=== PATIENT | female | born 1945 | race Caucasian/White ===

== ENCOUNTER 2018-10-31 18:23 | Emergency (ER) | payer MEDICARE, OTHER, SELFPAY ==
[2018-10-31 18:27] VITALS: BP 132/59; PULSE 100; RESP 16; TEMP 36.4; O2SAT 95
--- NOTE | 2018-10-31 18:31 | DI.RAD.S_ITS ---
PROCEDURE: XR KNEE RT 3V INDICATIONS: unexplained weaknes, pain TECHNIQUE: 3 views of the knee were acquired. COMPARISON: None. FINDINGS: Bones: No fractures or dislocations. No suspicious bony lesions. Soft tissues: No joint effusion. No suspicious soft tissue calcifications. IMPRESSION: No acute fracture. No osseous lesion. If clinical suspicion and/or symptoms persist, further assessment with repeat plainfilms, or advanced imaging (e.g., CT, MRI, or bone scan) may be helpful for further assessment. Dictated by: Donato Justice M.D. on 10/31/2018 at 18:53 Approved by: Donato Justice M.D. on 10/31/2018 at 18:53
--- NOTE | 2018-10-31 21:05 | ED.EXTPRO ---
HPI - Extremity Problem <Jessa Flores PA-C - Last Filed: 10/31/18 22:24> General Chief complaint: Extremity Problem,Nontraumatic Stated complaint: Rt knee locked Time Seen by Provider: 10/31/18 20:18 Source: patient Mode of arrival: ambulatory Limitations: no limitations History of Present Illness HPI Narrative: This 72-year-old female states she came to ED at the insistence of her . Earlier this evening, they were getting ready to go out to dinner and she felt her right knee give out, like it was unstable momentarily. She does not remember if she took a funny step or pivoted, but she did not have any pain. She states that her caught her and she did not fall. She states that the knee feels normal now but her wanted her to get it checked out. She denies any other injury and has not had any recent pain. She denies any pain in the ankle or hip. Review of Systems <Jessa Flores PA-C - Last Filed: 10/31/18 22:24> Review of Systems ROS Unobtainable: All systems reviewed & are unremarkable except as noted in HPI and below PFSH <Jessa Flores PA-C - Last Filed: 10/31/18 22:24> Medical History No pertinent family history (Chronic) No significant past medical history (Chronic) Surgical History Status post hysterectomy (Resolved) Social History Smoking Status: Former smoker Social History Smoking Status: Former smoker Exam <Jessa Flores PA-C - Last Filed: 10/31/18 22:24> Narrative Exam Narrative: GENERAL APPEARANCE: Patient sitting comfortably, in no distress. LUNGS: Clear to auscultation bilaterally. HEART: Rate and rhythm regular without murmur, normal S1 and S2, no S3 or S4. MUSCULOSKELETAL: Right knee there is no effusion or tenderness to palpation across the knee, or distal thigh/proximal lower leg. No tenderness or effusion over the ankle. She has full active range of motion of each. No right knee laxity with varus or valgus stress or drawer test. She ambulates with a shortened gait, slightly wide-based EXTREMITIES: No edema, no calf tenderness Initial Vital Signs Initial Vital Signs: Vital Signs Temperature 97.5 F L 10/31/18 18:27 Pulse Rate 100 H 10/31/18 18:27 Respiratory Rate 16 10/31/18 18:27 Blood Pressure 132/59 L 10/31/18 18:27 Pulse Oximetry 95 10/31/18 18:27 <DO Zafar Pang Last Filed: 11/01/18 04:10> Initial Vital Signs Initial Vital Signs: Vital Signs Temperature 97.5 F L 10/31/18 18:27 Pulse Rate 100 H 10/31/18 18:27 Respiratory Rate 16 10/31/18 18:27 Blood Pressure 132/59 L 10/31/18 18:27 Pulse Oximetry 95 10/31/18 18:27 Course <Jessa Flores PA-C - Last Filed: 10/31/18 22:24> Additional Information: The patient states that this shortened gait is not normal for her and admits that she may feel a little bit of instability in the knee. We discussed possible tendon or ligamentous injury though she is not having pain. She agrees to try a knee immobilizer splint, and I advised wearing this for a week, and follow up with a new PCP (she can be seen at the [place] [facility] but has not been) for further testing if her gait is not back to normal. Orders Ordered: ED Orders 10/31/18 18:31 XR knee RT 3V Stat Vital Signs - 8 hr 10/31/18 21:07 Pulse Rate 74 Respiratory Rate 18 Blood Pressure [Right Arm] 154/69 H Pulse Oximetry 99 <DO Zafar Pang Last Filed: 11/01/18 04:10> Orders Ordered: ED Orders 10/31/18 18:31 XR knee RT 3V Stat Vital Signs - 8 hr 10/31/18 21:07 Pulse Rate 74 Respiratory Rate 18 Blood Pressure [Right Arm] 154/69 H Pulse Oximetry 99 MDM - Extremity (Nontraumatic) <Jessa Flores PA-C - Last Filed: 10/31/18 22:24> Imaging Data knee: Radiologist's impression: [address] [address] XRay Report Signed Patient: Velvet Uribe [facility]#: [id number] : 1946Acct:[id number] Age/Sex: 72 / FDate of Service: 10/31/18 Loc: ED Accession Number: [id number] Procedure: XR knee RT 3V Ordering Provider: Edmund Olsen D.O. PROCEDURE: XR KNEE RT 3V INDICATIONS: unexplained weaknes, pain TECHNIQUE: 3 views of the knee were acquired. COMPARISON: None. FINDINGS: Bones: No fractures or dislocations. No suspicious bony lesions. Soft tissues: No joint effusion. No suspicious soft tissue calcifications. IMPRESSION: No acute fracture. No osseous lesion. If clinical suspicion and/or symptoms persist, further assessment with repeat plainfilms, or advanced imaging (e.g., CT, MRI, or bone scan) may be helpful for further assessment. Dictated by: Donato Justice M.D. on 10/31/2018 at 18:53 Approved by: Donato Justice M.D. on 10/31/2018 at 18:53 Discharge Plan Departure Patient Disposition: Home Clinical Impression: Knee instability Qualifiers: Laterality: right Qualified Code(s): M25.361 - Other instability, right knee Discharge Date/Time: 10/31/18 22:11 Interventions: ED Discharge Assessment Last Done: 10/31/18 22:11 Instructions: DI for Knee Sprain Activity Restrictions/Additional Instructions: I have given you instructions to follow for knee strain as I want you to rest the knee in a similar way. You do not need to take pain medication if it is not hurting, however, as we talked about, you could have a tear in the soft tissues in your knee. You said that you do not usually walk with a short gait like you did for me in the exam room, and you seems somewhat hesitant even though your knee did not give out again. Please wear the knee immobilizer splint that we gave you this week to help keep the knee more stable. If your knee is feeling back to normal it is okay to just monitor this, but if it is not by next week, you should follow-up at the [employer] [facility] the for further evaluation as you may need to see an cleaning specialist. <Edmund Olsen DO - Last Filed: 11/01/18 04:10> Cosign ED Attending Cosjaswinderature Attestation: I was immediately available in the department for consultation. Documentation has been reviewed. I agree with assessment and plan.
[2018-10-31 21:07] VITALS: BP 154/69; PULSE 74; RESP 18; O2SAT 99
== END 2018-10-31 22:11 | disposition home or self-care (01) ==
PROVIDERS: Emergency Provider Internal Medicine
DX: M25.361 Other instability, right knee (principal)
CPT/HCPCS: 73562; 99283